=== PATIENT | male | born 1965 | race Caucasian/White ===

== ENCOUNTER 2020-08-23 11:01 | Emergency (ER) | payer MEDICAID ==
[2020-08-23 11:01] VITALS: BP_SYST 143
[2020-08-23] MEDS ORDERED: predniSONE 20 MG TABLET PO ONE (11:15)
[2020-08-23] MEDS ORDERED: ALBUTEROL SULFATE 0.083% 2.5 MG/3 ML VIAL.NEB INH ONE (11:15)
[2020-08-23] MEDS ORDERED: IPRATROPIUM BROM 0.5 MG/2.5 ML VIAL.NEB (ATROVENT) INH ONE (11:15)
[2020-08-23] MEDS ORDERED: ALBMDI INH (11:48)
[2020-08-23] MEDS ORDERED: PRED20TA PO (11:48)
[2020-08-23 12:05] VITALS: BP_SYST 118
== END 2020-08-23 12:05 | disposition home or self-care (01) ==
LOC: SED 11:01
DX: J45.909 Unspecified asthma, uncomplicated (principal); R06.02 Shortness of breath; Z91.040 Latex allergy status
CPT/HCPCS: 71045; 94640; 99283; J7512; J7613

== ENCOUNTER 2021-07-29 11:12 | Emergency (ER) | payer MEDICAID ==
[~2021-07-29] VITALS: Ht 157.5 cm; Wt 86.2 kg
[~2021-07-29 11:12] MED LIST: ALBMDI INH; PRED20TA PO
[2021-07-29 11:25] VITALS: BP_SYST 148
--- NOTE | 2021-07-29 11:25 | NUR ---
Placed in room 08 . 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 To gown for exam. Side rails up.
--- NOTE | 2021-07-29 11:51 | NUR ---
PATIENT AAOX4 FROM HOME WITH MULTIPLE COMPLAINTS C/O LOWER ABDOMINAL PAIN THAT STARTED YESTERDAY. PER PATIENT HE WAS GIVEN ABTX ABOUT TWO WEEKS AGO FOR A TOOTH. PER PATIENT HE HAS BEEN HAVING DIARRHEA FOR THE PAST 2 WEEKS. PATIENT ALSO C/O NUMBNESS TO HIS LEFT THUMB, INDEX FINGER, MIDDLE FINGER. PATIENT STATED FEELING WEAKER AND SLEEPY.
--- NOTE | 2021-07-29 11:55 | NUR ---
# 20 gauge angiocath placed to LEFT AC Use of asceptic technique. Opsite placed over site. Blood return noted. Blood for lab drawn from site. Flushed with 10 cc of normal saline. No evidence of infiltration noted. Patient tolerated well.
[2021-07-29] MEDS ORDERED: MORPHINE 4 MG INJ. 4 MG/ML VIAL IVP ONE (12:00)
[2021-07-29] MEDS ORDERED: NACL 0.9% 2,000 ML IV ONE (12:00)
[2021-07-29 12:20] LABS: BASOPHILS # (AUTO) 0.1 K/uL (0.0-0.2); EOSINOPHILS # (AUTO) 0.4 K/uL (0.0-0.4); EOSINOPHILS % (AUTO) 3.4 % (0.0-4.0); HEMATOCRIT 46.2 % (36-54); HEMOGLOBIN 15.6 g/dL (14.0-18.0); LYMPHOCYTES # (AUTO) 1.8 K/uL (1.0-5.5); LYMPHOCYTES % (AUTO) 14.8 % (20.5-51.5); MEAN CORPUSCULAR HEMOGLOBIN 29 pg (27-31); MEAN CORPUSCULAR HGB CONC 34 % (32-36); MEAN CORPUSCULAR VOLUME 85 fL (79.0-98.0); MONOCYTES # (AUTO) 1.1 K/uL (0.0-1.0); MONOCYTES % (AUTO) 9.4 % (1.7-9.3); NEUTROPHILS # (AUTO) 8.5 K/uL (1.8-7.7); NEUTROPHILS % (AUTO) 71.4 % (40.0-70.0); PLATELET COUNT (AUTO) 386 K/uL (130-430); RED BLOOD CELL COUNT(AUTO) 5.45 MIL/uL (4.2-6.2); RED CELL DISTRIBUTION WIDTH 14.7 % (9.0-15.0); WHITE BLOOD COUNT (AUTO) 11.9 K/uL (4.8-10.8)
[2021-07-29 12:24] LABS: CALCIUM 8.8 mg/dL (8.4-11.0); CREATININE 0.86 mg/dL (0.55-1.30); POTASSIUM 4.1 mmol/L (3.5-5.1)
[2021-07-29 12:30] LABS: ALBUMIN 3.5 g/dL (3.4-4.8); TOTAL BILIRUBIN 0.2 mg/dL (0.0-1.0)
[2021-07-29] MEDS ORDERED: ONDANSETRON HCL 4 MG/2 ML VIAL ONE (12:48)
[2021-07-29] MEDS ORDERED: ONDANSETRON HCL 4 MG/2 ML VIAL IVP ONE (13:00)
[2021-07-29] MEDS ORDERED: PIPERACILLIN/TAZOBACTAM 3.375 GM/VIAL (ZOSYN) IV ONE (14:38)
[2021-07-29] MEDS ORDERED: PIPERACILLIN/TAZO 3.375 GM in NS 50 ML IV ONE (14:45)
[2021-07-29] MEDS ORDERED: metroNIDAZOLE 500 MG TABLET PO ONE (14:45)
[2021-07-29] MEDS ORDERED: NACL 0.9% 1,000 ML IV ONE (15:00)
[2021-07-29] MEDS ORDERED: AUG875 PO (15:44)
[2021-07-29] MEDS ORDERED: POLY17PO4 PO (15:44)
[2021-07-29] MEDS ORDERED: DOCU-144 PO (15:44)
[2021-07-29] MEDS ORDERED: HYDR-3921 PO (15:44)
--- NOTE | 2021-07-29 16:35 | NUR ---
Patient given written and verbal discharge instructions and verbalizes understanding. ER MD discussed with patient the results and treatment provided. Patient in stable condition. ID arm band removed. IV removed with catheter intact, pt tolerated it well Rx of AUGMENTIN, COLACE, NORCO, MIRALAX given. Patient educated on pain management and to follow up with PMD. Pain Scale 0/10. Opportunity for questions provided and answered. Medication side effect fact sheet provided.
== END 2021-07-29 16:34 | disposition home or self-care (01) ==
LOC: SED 11:12
DX: K57.32 Diverticulitis of large intestine without perforation or abscess without bleeding (principal); E86.0 Dehydration; J45.909 Unspecified asthma, uncomplicated; Z91.040 Latex allergy status; Z79.899 Other long term (current) drug therapy
CPT/HCPCS: 36415; 74176; 76376; 80053; 83690; 85025; 96361; 96374; 96375; 99284; J2270; J2405; J2543; J7030

== ENCOUNTER 2021-08-17 22:35 | Emergency (ER) | payer MEDICAID ==
[~2021-08-17] VITALS: Ht 177.8 cm; Wt 90.7 kg
[~2021-08-17 22:35] MED LIST changes: +AUG875 PO; +DOCU-144 PO; +HYDR-3921 PO; +POLY17PO4 PO
[2021-08-17 22:42] VITALS: BP_SYST 134
[2021-08-17] MEDS ORDERED: IBUPROFEN 800 MG TABLET PO ONE (23:30)
[2021-08-17] MEDS ORDERED: predniSONE 20 MG TABLET PO ONE (23:45)
[2021-08-17] MEDS ORDERED: IPRATROPIUM/ALBUTEROL SULFATE 3 ML AMPUL.NEB (DUONEB) INH ONE (23:45)
[2021-08-18 00:51] VITALS: BP_SYST 134
== END 2021-08-18 00:51 | disposition left against medical advice (07) ==
LOC: SED 22:35
DX: R10.9 Unspecified abdominal pain (principal); J45.909 Unspecified asthma, uncomplicated; Z91.040 Latex allergy status; Z79.899 Other long term (current) drug therapy
CPT/HCPCS: 99281

== ENCOUNTER 2021-09-27 11:36 | Emergency (ER) | payer MEDICAID ==
[~2021-09-27] VITALS: Ht 177.8 cm; Wt 86.2 kg
[2021-09-27 11:42] VITALS: BP_SYST 118
--- NOTE | 2021-09-27 11:45 | NUR ---
PT TRIAGED AND PLACED IN ED LOBBY FOR AVAILABLE BED IN MAIN ED, MADE AWARE OF MSE NEEDS
--- NOTE | 2021-09-27 11:48 | NUR ---
ER DR LAWRENCE EXAMINING PT IN TRIAGE
[2021-09-27] MEDS ORDERED: LIP10 PO (12:18)
[2021-09-27] MEDS ORDERED: ASCO500T20 PO (12:18)
[2021-09-27] MEDS ORDERED: ASA81 PO (12:18)
[2021-09-27] MEDS ORDERED: FER300L PO (12:18)
[2021-09-27] MEDS ORDERED: PHEN100C4 PO (12:18)
[2021-09-27] MEDS ORDERED: MEMA10TA PO (12:18)
[2021-09-27] MEDS ORDERED: SER25 PO (12:18)
[2021-09-27] MEDS ORDERED: METO25TA3 PO (12:18)
[2021-09-27] MEDS ORDERED: ACET325T53 PO (12:18)
[2021-09-27] MEDS ORDERED: MULT-1193 PO (12:18)
[2021-09-27] MEDS ORDERED: CLOB50SO2 TP (12:18)
[2021-09-27] MEDS ORDERED: ENAL20TA18 PO (12:18)
[2021-09-27] MEDS ORDERED: TAMS-11 PO (12:18)
--- NOTE | 2021-09-27 13:08 | NUR ---
CALL FROM RADIOLOGY IN ED LOBBY, NO ANSWER
[2021-09-27 13:28] VITALS: BP_SYST 118
--- NOTE | 2021-09-27 13:28 | NUR ---
PT ELOPED FROM [facility] ABEBE
== END 2021-09-27 13:28 | disposition left against medical advice (07) ==
LOC: SED 11:36
DX: R10.9 Unspecified abdominal pain (principal); J45.909 Unspecified asthma, uncomplicated; Z91.040 Latex allergy status; Z79.899 Other long term (current) drug therapy
CPT/HCPCS: 99281